=== PATIENT | female | born 1995 | race Caucasian/White ===

== ENCOUNTER 2022-10-01 17:28 | Emergency (ER) | payer OTHER, SELFPAY ==
--- NOTE | ~2022-10-01 | CT_ITS ---
EXAMINATION: CT ABDOMEN AND PELVIS WITH CONTRAST CLINICAL INFORMATION: Left-sided abdominal pain COMPARISON: None available. TECHNIQUE: Multidetector volumetric images were obtained from the superior aspect of the liver through the pubic symphysis following administration 85 mL of Omnipaque 350 intravenous contrast. Sagittal and coronal reformatted images were obtained on the technologist's workstation. Oral contrast: No This CT examination was performed using dose optimization techniques as appropriate, variously including the following: *Automated exposure control *Adjustment of mA and/or kV according to patient size (this includes techniques or standardized protocols for targeted exams where dose is matched to indication/reason for exam; i.e. extremities or head) *Use of iterative reconstruction technique DLP: 326 mGy-cm FINDINGS: LUNG BASES: The visualized lung bases are unremarkable. LIVER, GALLBLADDER, AND BILIARY TREE: The liver is normal in size, shape, and attenuation. No focal hepatic lesion or biliary ductal dilatation is present. The gallbladder is unremarkable with no evidence of radiopaque gallstones, gallbladder wall thickening, or obvious pericholecystic inflammatory changes. PANCREAS: Unremarkable. SPLEEN: Unremarkable. ADRENAL GLANDS: Unremarkable. KIDNEYS AND URETERS: The kidneys are normal in size, shape, and attenuation. No hydronephrosis, hydroureter, or calculi seen. No perinephric stranding. BLADDER: Unremarkable. GASTROINTESTINAL TRACT: There is large amount of stool in the colon without any significant distention. The small bowel loops are normal caliber. Appendix is normal caliber. There is no free air or free fluid. ABDOMINAL WALL: No significant hernia is appreciated. LYMPH NODES: Normal. VASCULAR: Unremarkable. PELVIC VISCERA: The uterus is anteverted. Ovaries are symmetrical. OSSEOUS STRUCTURES: No aggressive lytic or sclerotic process seen. CT/CT abdomen pelvis w IV con IMPRESSION: 1. No acute intra-abdominal process seen. 2. Significant constipation without obstruction. 3. No radiopaque urolith or hydroureteronephrosis. Fleischner guidelines were followed.
--- NOTE | 2022-10-01 17:45 | ED.ABDPAIN ---
HPI - Abdominal Pain General Chief Complaint: Abdominal Pain Stated Complaint: abd pain Time Seen by Provider: 10/01/22 17:33 History of Present Illness HPI narrative: Patient is a 27-year-old female presents today with having left-sided abdominal pain. The pain is been ongoing for about 2 weeks. Not associated with any fever chills. No nausea no vomiting not affected by movement. Not affected by food. No change in bowel movement. The pain has been persistent. Patient denies any vaginal bleeding. Does not think she is . Her last menstrual period was about 3 weeks ago timing and duration was normal. Denies any pain on urination. No fever no chills. Sent to the ED for further evaluation by her primary physician for question appendicitis. Related Data Previous Rx's Medication Instructions Recorded pantoprazole 40 mg tablet,delayed 40 mg PO DAILY #14 tabs 10/01/22 release (Protonix) Allergies Allergy/AdvReac Type Severity Reaction Status Date / Time No Known Allergies Allergy Unverified 02/29/20 16:35 [No Known Allergies*] Review of Systems Review of Systems Positive abdominal pain Yes all other systems are reviewed and are negative [facility] Past Medical History Attestation statement: The following information was validated with the patient. Social History Social History Advance Directives: No Advance Directives Information Provided: No Physical Exam ED Vital Signs: Vital Signs - 24 hr 10/01/22 17:56 Temperature 98.8 F Pulse Rate 88 Respiratory Rate 18 Blood Pressure 130/92 H Pulse Oximetry 97 Oxygen Delivery Method Room Air BMI result Body Mass Index 20.3 Appearance: Alert. Oriented X3. No acute distress. Eyes: Pupils equal, round and reactive to light. ENT: Pharynx normal. Neck: Normal inspection. Neck supple. No lymph nodes noted. No crepitus CVS: Normal heart rate and rhythm. Pulses normal. Normal S1 and S2 Respiratory: No respiratory distress. Breath sounds normal. No Wheezing. No rales Abdomen: Soft and nontender. No rigidity. No distention. good BS x4 Skin: Skin warm and dry. Normal skin color. Normal skin turgor. Extremities: No lower extremity edema. Neurovascular intact to all extremities. No Lacerations. No Rash Neuro: Oriented X 3. No motor deficit. No sensory deficit. Moving all extermities. No slurred speech Medical Decision Making Medical Decision Making MDM Narrative: Positive abdominal pain on the left side. Sent in by her primary physician for possible appendicitis. [place] the risk of appendicitis is low patient's urine showed no evidence of blood. Less likely it is kidney stone. CT scan of the abdomen pelvis nevertheless was done. Patient's white count was normal electrolytes normal LFTs normal less likely biliary disease. Patient's lipase is normal no evidence for pancreatitis. CT scan of the abdomen pelvis showed no obstruction no abscess no perforation. No kidney stones in the ureter. Positive constipation. Will discharge patient home. No evidence for diverticulitis. No abscess no perforation. Patient's test of course was negative no evidence of related issues. Patient's urine showed no signs of infection. Differential Diagnosis Differential Diagnoses: The differential diagnosis associated with the presentation includes UTI, gastritis, constipation, diverticulitis, appendicitis, obstruction, abscess, intussusception Admission/Observation Consideration of admission/observation: Escalation of care including admission/observation considered Lab Data MDM Lab Attestation statement: I reviewed the patient's lab results. 10/01/22 18:15 10/01/22 18:15 Labs: Lab Results 10/01/22 10/01/22 10/01/22 Range/Units 18:15 18:15 18:15 WBC 7.9 (4.8-10.8) X10*3/uL RBC 4.29 (4.20-5.50) X10*6/uL Hgb 13.8 (12.0-16.0) g/dl Hct 40.4 (37.0-47.0) % MCV 94.2 (80.0-98.0) fL MCH 32.2 (27.0-33.0) pg MCHC 34.2 (31.0-35.0) g/dl RDW 12.2 (11.0-16.0) % Plt Count 259 (160-400) X10*3/uL MPV 10.1 (9.4-12.3) fL Immature Gran % (Auto) 0.3 (0.0-0.4) % Neut % (Auto) 67.1 (45-73) % Lymph % (Auto) 25.4 (20-40) % [place] % (Auto) 5.9 (2-11) % Eos % (Auto) 0.8 (0-4) % Baso % (Auto) 0.5 (0-2) % Lymph # (Auto) 2.0 (1.2-4.9) X10*3/uL [place] # (Auto) 0.5 (0.1-1.2) X10*3/uL Eos # (Auto) 0.1 (0.0-0.4) X10*3/uL Baso # (Auto) 0.0 (0.0-0.2) X10*3/uL Abs Immat Gran (auto) 0.02 (0.00-0.03) X10*3/uL Absolute Neuts (auto) 5.3 (2.0-8.3) x10*3/uL Absolute Nucleated RBC 0.000 (0.0-0.012) X10*3/uL Nucleated RBC % (auto) 0.0 (0.0-0.2) /100WBC Sodium 140 (135-145) mmol/L Potassium 4.0 (3.3-5.1) mmol/L Chloride 102 (96-108) mmol/L Carbon Dioxide 26 (22-29) mmol/L Anion Gap 16 (12-20) BUN 12 (9-16) mg/dL Creatinine 0.82 (0.5-1.4) mg/dL Estim Creat Clear Calc 86.4 Estimated GFR > 60 Random Glucose 103 (60-115) mg/dL Calcium 10.0 (8.4-10.2) mg/dL Total Bilirubin 0.8 (0.0-1.0) mg/dL Direct Bilirubin 0.3 (0.0-0.5) mg/dL AST 30 (5-31) U/L ALT 36 H (0-31) U/L Alkaline Phosphatase 57 (39-117) U/L Total Protein 7.6 (6.5-8.0) g/dL Albumin 5.0 (3.5-5.0) g/dL Lipase 53 (8-78) U/L Urine Color Yellow Urine Appearance Clear Urine pH 6.0 (5.0-9.0) Ur Specific [place] 1.025 (1.005-1.025) Urine Protein Trace (Neg-Trace) mg/dL Urine Glucose (UA) Negative (Negative) mg/dL Urine Ketones Negative (Negative) mg/dL Urine Blood Trace (Negative) Urine Nitrite Negative (Negative) Ur Leukocyte Esterase Negative (Negative) Urine RBC 0-2 (0-2) /HPF Urine WBC 0-5 (0-5) /HPF Ur Squamous Epith Cells 0-2 (0-2) /HPF Urine Bacteria None Seen (None Seen) Hyaline Casts 0-2 (0-2) /LPF Urine Test (NEGATIVE) 10/01/22 Range/Units 18:15 WBC (4.8-10.8) X10*3/uL RBC (4.20-5.50) X10*6/uL Hgb (12.0-16.0) g/dl Hct (37.0-47.0) % MCV (80.0-98.0) fL MCH (27.0-33.0) pg MCHC (31.0-35.0) g/dl RDW (11.0-16.0) % Plt Count (160-400) X10*3/uL MPV (9.4-12.3) fL Immature Gran % (Auto) (0.0-0.4) % Neut % (Auto) (45-73) % Lymph % (Auto) (20-40) % [place] % (Auto) (2-11) % Eos % (Auto) (0-4) % Baso % (Auto) (0-2) % Lymph # (Auto) (1.2-4.9) X10*3/uL [place] # (Auto) (0.1-1.2) X10*3/uL Eos # (Auto) (0.0-0.4) X10*3/uL Baso # (Auto) (0.0-0.2) X10*3/uL Abs Immat Gran (auto) (0.00-0.03) X10*3/uL Absolute Neuts (auto) (2.0-8.3) x10*3/uL Absolute Nucleated RBC (0.0-0.012) X10*3/uL Nucleated RBC % (auto) (0.0-0.2) /100WBC Sodium (135-145) mmol/L Potassium (3.3-5.1) mmol/L Chloride (96-108) mmol/L Carbon Dioxide (22-29) mmol/L Anion Gap (12-20) BUN (9-16) mg/dL Creatinine (0.5-1.4) mg/dL Estim Creat Clear Calc Estimated GFR Random Glucose (60-115) mg/dL Calcium (8.4-10.2) mg/dL Total Bilirubin (0.0-1.0) mg/dL Direct Bilirubin (0.0-0.5) mg/dL AST (5-31) U/L ALT (0-31) U/L Alkaline Phosphatase (39-117) U/L Total Protein (6.5-8.0) g/dL Albumin (3.5-5.0) g/dL Lipase (8-78) U/L Urine Color Urine Appearance Urine pH (5.0-9.0) Ur Specific [place] (1.005-1.025) Urine Protein (Neg-Trace) mg/dL Urine Glucose (UA) (Negative) mg/dL Urine Ketones (Negative) mg/dL Urine Blood (Negative) Urine Nitrite (Negative) Ur Leukocyte Esterase (Negative) Urine RBC (0-2) /HPF Urine WBC (0-5) /HPF Ur Squamous Epith Cells (0-2) /HPF Urine Bacteria (None Seen) Hyaline Casts (0-2) /LPF Urine Test NEGATIVE (NEGATIVE) Medications Administered Discontinued Medications Generic Name Dose Route Start Last Admin Trade Name Freq PRN Reason Stop Dose Admin Sodium Chloride 1,000 mls @ 999 mls/hr 10/01/22 17:45 10/01/22 18:33 Ns IV 10/01/22 18:45 999 mls/hr .Q1H1M DANIELE Administration Iohexol 100 ml 10/01/22 18:56 10/01/22 18:56 Iohexol 350 Mg/Ml 100 Ml Infus..Btl IV 10/01/22 18:57 85 ml ONCE ONE Administration Ketorolac Tromethamine 15 mg 10/01/22 17:44 10/01/22 18:32 Ketorolac Tromethamine 15 Mg/Ml Vial IVPUSH 10/01/22 17:45 15 mg ONCE ONE Administration Discharge Plan Discharge Clinical Impression: Abdominal pain Patient Disposition: Home, Self-Care Instructions: Constipation (DC), Abdominal Pain (ED), Gastritis (DC) Prescriptions: New pantoprazole [Protonix] 40 mg tablet,delayed release (DR/EC) 40 mg PO DAILY Qty: 14 0RF Referrals: Physician,Unknown J [Primary Care Provider] - 10/05/22
[2022-10-01 17:50] VITALS: BMI 20.3
[2022-10-01 17:56] VITALS: BP 130/92; PULSE 88; RESP 18; TEMP 37.1; O2SAT 97
[2022-10-01 18:29] LABS: MANUAL DIFF FLAG NO
[2022-10-01] MEDS: Ketorolac Tromethamine 15 MG/ML VIAL IVPUSH (18:32)
[2022-10-01] MEDS: 0.9 % Sodium Chloride 1,000 ML 999 ML IV (18:33)
[2022-10-01 18:36] LABS: UPreg QC Valid YES; Urine Pregnancy NEGATIVE (NEGATIVE)
[2022-10-01 18:39] LABS: Appearance Urine Clear; Color Urine Yellow; Glucose Urine UA Negative (Negative); Leukocyte Esterase Urine Negative (Negative); Nitrite Urine Negative (Negative); Specific Gravity - Urine 1.025 (1.005-1.025); UMIC TRIGGER UACC YES; Urine Blood Trace (Negative); Urine Ketones Negative (Negative); Urine Protein Trace mg/dL (Neg-Trace)
[2022-10-01 18:40] LABS: Basophils Percent Auto 0.5 % (0-2); Eosinophils Absolute Auto 0.1 X10*3/uL (0.0-0.4); Eosinophils Percent Auto 0.8 % (0-4); Hematocrit 40.4 % (37.0-47.0); Hemoglobin 13.8 g/dl (12.0-16.0); Imm Gran Abs Auto 0.02 X10*3/uL (0.00-0.03); Imm Gran Pct Auto 0.3 % (0.0-0.4); Lymphocytes Percent Auto 25.4 % (20-40); Mean Corpuscular HGB Conc 34.2 g/dl (31.0-35.0); Mean Corpuscular Hemoglobin 32.2 pg (27.0-33.0); Mean Corpuscular Volume 94.2 fL (80.0-98.0); Mean Platelet Volume 10.1 fL (9.4-12.3); Monocytes Absolute Auto 0.5 X10*3/uL (0.1-1.2); Monocytes Percent Auto 5.9 % (2-11); Neutrophils Absolute Auto 5.3 x10*3/uL (2.0-8.3); Neutrophils Percent Auto 67.1 % (45-73); Platelet Count 259 X10*3/uL (160-400); Red Blood Count 4.29 X10*6/uL (4.20-5.50); Red Cell Distribution Width 12.2 % (11.0-16.0); White Blood Count 7.9 X10*3/uL (4.8-10.8)
[2022-10-01 18:46] LABS: Alanine Aminotransferase 36 U/L (0-31); Alkaline Phosphatase 57 U/L (39-117); Anion Gap 16 (12-20); Aspartate Amino Transferase 30 U/L (5-31); Bilirubin Direct 0.3 mg/dL (0.0-0.5); Bilirubin Total 0.8 mg/dL (0.0-1.0); Blood Urea Nitrogen 12 mg/dL (9-16); Carbon Dioxide 26 mmol/L (22-29); Chloride 102 mmol/L (96-108); Creatinine Clr Calc Pharmacy 86.4; Estimated Glomerular Filt Rate > 60; Glucose Random 103 mg/dL (60-115); Lipase 53 U/L (8-78); Sodium 140 mmol/L (135-145); Total Protein 7.6 g/dL (6.5-8.0)
[2022-10-01 18:55] LABS: Bacteria Urine None Seen (None Seen); Hyaline Casts Urine 0-2 /LPF (0-2); RBC Urine 0-2 /HPF (0-2); Squamous Epithelial Cell Urine 0-2 /HPF (0-2); WBC Urine 0-5 /HPF (0-5)
[2022-10-01] MEDS: iohexoL 350 MG/ML 100 ML INFUS..BTL IV (18:56)
== END 2022-10-01 19:54 | disposition home or self-care (01) ==
PROVIDERS: Emergency Provider Emergency Medicine Emergency Medical Services
DX: R10.9 Unspecified abdominal pain (principal)
CPT/HCPCS: 36415; 74177; 80048; 80076; 81001; 81025; 83690; 85025; 96374; 99283; 99284; J1885; Q9967

== ENCOUNTER 2022-12-24 11:54 | Outpatient (REF) | payer OTHER, SELFPAY ==
[2022-12-24 13:46] LABS: Estimated Average Glucose 94 mg/dL; Hemoglobin A1c % 4.9 %
[2022-12-24 14:24] LABS: C Reactive Protein < 0.04 mg/dL (< or = 0.50)
[2022-12-24 14:43] LABS: Erythrocyte Sedimentation Rate 2 MM/HR (0-20)
[2022-12-24 14:44] LABS: Thyroid Stimulating Hormone 0.88 uIU/mL (0.32-4.0)
[2022-12-25 05:26] LABS: HBS Num1 4.97 mIU/mL (0-7.99); HBc Num1 0.13 S/CO (0.00-0.79); HBsAGNum1 0.35 S/CO (0.00-0.99); HIV AB/AG Nonreactive (Nonreactive); Hepatitis A Antibody IgM 0.26 Index (0-0.79); Hepatitis B Core Antibody Nonreactive (Nonreactive); Hepatitis B Surface Antigen Negative (Negative); ~HepC Num1 0.15 S/CO (0.00-0.79); ~Hepatitis A Antibody IgM Nonreactive (Nonreactive); ~Hepatitis B Surface Antibody NONREACTIVE (Nonreactive); ~Hepatitis C Antibody Nonreactive (Nonreactive)
[2022-12-26 22:34] LABS: TS Negative Control Passed; TS Panel A 0; TS Panel B 0; TS Positive Control Passed; TSpotTB Negative (Negative)
[2022-12-28 22:48] LABS: Transglutaminase IgA <1.0 U/mL
[2022-12-29 16:38] LABS: Endomysial IgA Antibody Negative (Negative)
[2023-01-01 14:48] LABS: Pancreatic Elastase-1 >500 mcg/g
[2023-01-01 22:28] LABS: Calprotectin, Fecal 6 mcg/g
== END 2022-12-24 11:55 | disposition home or self-care (01) ==
LOC: HO.LAB 11:54
PROVIDERS: Visit Provider Physician Assistant
DX: Z11.4 Encounter for screening for human immunodeficiency virus [HIV] (principal); Z11.1 Encounter for screening for respiratory tuberculosis; K52.9 Noninfective gastroenteritis and colitis, unspecified; L74.9 Eccrine sweat disorder, unspecified; R63.4 Abnormal weight loss; R79.89 Other specified abnormal findings of blood chemistry; R19.8 Other specified symptoms and signs involving the digestive system and abdomen; A04.8 Other specified bacterial intestinal infections
CPT/HCPCS: 36415; 82656; 83036; 83993; 84443; 85652; 86140; 86231; 86364; 86481; 86704; 86706; 86709; 86803; 87338; 87340; 87389

== ENCOUNTER 2022-12-24 11:54 | Outpatient (AMB) | payer OTHER, SELFPAY ==
--- NOTE | 2022-12-24 11:59 | A.OFFVIS_ITS ---
Intake Vital Signs 12/24/22 12:00 Height 5 ft 3 in Weight 99 lb 3.328 oz BMI 17.6 BP 136/89 Blood Pressure Location Lt brachial Position Sitting Pulse 71 Intake Visit Reasons: abdominal pain and constipation Intake Note: Iva mortensen presents in office as a new patient for abdominal pain , constipation PT CC: pt reports having abdominal pain, constipation / diarrhea , bloating, nausea pt denies any other GI Issues General Handling Supervisor Required: No Accompanied by: Self / Same As Patient Allergies No Known Allergies [No Known Allergies*] Allergy (Unverified 12/24/22 12:01) Medication List - Last Reconciled 12/24/22 by Francheska Angel PA-C HPI HPI Comments History of Present Illness Details A 27 y/o female referred for odd LUQ burning and moves into the rest of the LQ - it cause pain-radiate to left lower quadrant-constipation, unable to go/then diarrhea She has a healthy diet- difficult to eat- nausea- daily 4-5 months-pantoprazole prescribed after ED- didnt seem to help-she has lost about 25 lb since August of this year She has had feeling of something coming from her stomach up into her throat that may have been heartburn however she is unsure rarely drinks etoh-Vapes and smokes MJ She saw PCP- sent to ED for eval for appendix- CT labs and urine- no findings She is always sweating-drenched- Washes hands- She has nausea no vomiting , no fever or chills She denies any changes in home or relationship PFSH Family History Mother Diabetes Father Diabetes Kidney cancer, primary, with metastasis from kidney to other site Social History Household Members: Family Alcohol intake: current Alcohol intake frequency: holidays/special occasions only Alcohol type: wine Patient Tobacco Use Status: Never used Tobacco e-Cigarette/Vaping Use: Currently Using Substance Use Type: Marijuana Review of Systems Const All systems reviewed & are unremarkable except as noted in HPI and below Card Denies chest pain and Denies dyspnea Resp Denies dyspnea GI Reports abdominal pain, Reports bloating, Reports heartburn, Reports loose stools, Reports nausea and Denies vomiting Physical Exam Vital Signs: Last Vital Signs Pulse 71 07/13/23 12:00 BP 136/89 12/24/22 12:00 BMI result Body Mass Index 17.6 Const General: cooperative, comfortable and no acute distress Nutritional Appearance: thin Orientation/consciousness: patient oriented x3 Limitations: no limitations Eyes Sclerae: sclerae normal Resp Effort & Inspection: normal respiratory effort and able to speak in complete sentences Auscultation: clear to auscultation bilaterally Cardio Rate: regular rate Rhythm: regular rhythm Heart sounds: S1 normal heart sound present and S2 normal heart sound present GI Inspection: Yes other (Flat) Palpation (GI): Soft to palpation and nontender Auscultation: normal bowel sounds Skin Rashes: other (Superficial slightly raise no erythema torso) Neuro General: patient oriented x3 Psych Appearance: grossly normal and well kempt Mental Status: mental status grossly normal Speech and movement: Clear speech present Affect: Anxious affect present Attitude: cooperative Thought process: Normal thought process present Thought content: Normal thought content present Results Reviewed Results Reviewed: CT/CT abdomen pelvis w IV con IMPRESSION: 1.? No acute intra-abdominal process seen. 2.? Significant constipation without obstruction. 3.? No radiopaque urolith or hydroureteronephrosis. 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 - Irritable bowel syndrome without diarrhea (2) Sweating abnormality: Comment: Difficult to assess-will check TSH, CRP Code(s): L74.9 - Eccrine sweat disorder, unspecified (3) Chronic diarrhea: Comment: In stool studies, last Code(s): K52.9 - Noninfective gastroenteritis and colitis, unspecified (4) Weight loss: Comment: Somewhat difficult to assess- her symptoms chronic, vague varying 25 lb weight loss since August 2022 Nausea, alternating stool pattern, abdominal pain, negative test Denies depression Work/home Life balance Code(s): R63.4 - Abnormal weight loss 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 Reviewed reflux precautions avoids culprits Labs today, stool studies to include fecal renetta- Orders: Orders Calprotectin, Fecal Today R19.7 - Diarrhea, unspecified C Reactive Protein Today K52.9 - Noninfective gastroenteritis and colitis, unspecified, K58.9 - Irritable bowel syndrome without diarrhea, L74.9 - Eccrine sweat disorder, unspecified Hemoglobin A1c Today K52.9 - Noninfective gastroenteritis and colitis, unspecified, L74.9 - Eccrine sweat disorder, unspecified, R63.4 - Abnormal weight loss Erythrocyte Sedimentation Rate Today R19.7 - Diarrhea, unspecified Endomysial IgA rflx Titer Today K52.9 - Noninfective gastroenteritis and colitis, unspecified, L74.9 - Eccrine sweat disorder, unspecified, R63.4 - Abnormal weight loss HIV Ab/Ag Today K52.9 - Noninfective gastroenteritis and colitis, unspecified, R63.4 - Abnormal weight loss T Spot TB Today K58.9 - Irritable bowel syndrome without diarrhea, L74.9 - Eccrine sweat disorder, unspecified Pancreatic Elastase-1 Today K52.9 - Noninfective gastroenteritis and colitis, unspecified, L74.9 - Eccrine sweat disorder, unspecified, R63.4 - Abnormal weight loss Thyroid Stimulating Hormone Today R19.8 - Other specified symptoms and signs involving the digestive system and abdomen Transglutaminase IgA Today R19.7 - Diarrhea, unspecified Hepatitis A,B,C Profile Today R79.89 - Other specified abnormal findings of bloo d chemistry H pylori Ag Stool Today A04.8 - Other specified bacterial intestinal infections Fecal Fat Qualitative Today K52.9 - Noninfective gastroenteritis and colitis, unspecified, L74.9 - Eccrine sweat disorder, unspecified, R63.4 - Abnormal weight loss Giardia Ag Stool EIA Today R19.7 - Diarrhea, unspecified Gliadin Ab Panel Today K52.9 - Noninfective gastroenteritis and colitis, unspecified, L74.9 - Eccrine sweat disorder, unspecified, R63.4 - Abnormal weight loss Medications: New methylcellulose (laxative) (Citrucel) 500 mg PO TID 90 tabs 5RF sucralfate 1 g PO QIDACHS 30 days 90 tabs 1RF Patient Instructions: Very pleasant 27-year-old soft-spoken female presents with weight loss, alternating stool pattern, abdominal pain, chronic nausea flashes Labs today Begin Carafate q.i.d.- H pylori if positive will test Encouraged to call questions or concerns Appreciate the opportunity assist in the care the patient Coding Level of Care Code New Pt Level 4 (45467) Diagnoses IBS (irritable bowel syndrome) K58.9 Sweating abnormality L74.9 Chronic diarrhea K52.9 Weight loss R63.4 Time Spent (min) 45
[2022-12-24 12:00] VITALS: BP 136/89; PULSE 71; BMI 17.6
== END 2022-12-24 12:45 | disposition home or self-care (01) ==
PROVIDERS: Visit Provider Physician Assistant
DX: K58.0 Irritable bowel syndrome with diarrhea (principal); L74.9 Eccrine sweat disorder, unspecified; R63.4 Abnormal weight loss
CPT/HCPCS: 99204; 99214

== ENCOUNTER 2023-02-01 13:28 | Outpatient (AMB) | payer OTHER, SELFPAY ==
--- NOTE | 2023-02-01 13:37 | A.OFFVIS_ITS ---
Intake Vital Signs 02/01/23 13:41 Height 5 ft 3 in Weight 100 lb BMI 17.7 BP 127/59 L Blood Pressure Location Lt brachial Position Sitting Pulse 96 Intake Visit Reasons: follow up Intake Note: Patient follow up Chronic diarrhea, lab and fecal results. Patient cc: abdominal pain with bloating, acid reflex, and between diarrhea and constipation. Used Equipment Sales Representative Required: No Accompanied by: Self / Same As Patient Allergies No Known Allergies [No Known Allergies*] Allergy (Verified 02/01/23 13:36) HPI HPI Comments History of Present Illness Details 27-year-old female acid reflux, alternating stool pattern, abdominal bloating, -chronic vague GI complaints follows up after blood work and stool studies. She says she is not better- acid is way worse-comes up in my mouth - bloating alternating stool pattern-appetite is not great, still losing weight-gets abdominal cramps left at quadrant seems to wander TSH, celiac markers, sed rate, crp ,stool calprotectin, all within normal range No fever, chills, hematemesis hematochezia PFSH Family History Mother Diabetes Father Diabetes Kidney cancer, primary, with metastasis from kidney to other site Social History Household Members: Family Alcohol intake: current Alcohol intake frequency: holidays/special occasions only Alcohol type: wine Patient Tobacco Use Status: Never used Tobacco e-Cigarette/Vaping Use: Currently Using Substance Use Type: Marijuana Review of Systems Const All systems reviewed & are unremarkable except as noted in HPI and below Denies chills, Reports excessive sweating, Denies fever(s), Denies headache(s) and Reports weight loss ENT Denies headache(s) Card Denies chest pain and Denies dyspnea Resp Denies dyspnea GI Reports abdominal pain, Denies hematochezia, Reports constipation, Reports heartburn and Reports diarrhea Neuro Denies headache(s) Psych Reports anxiety Endo Reports excessive sweating Physical Exam Vital Signs: Last Vital Signs Pulse 96 02/01/23 13:41 BP 127/59 L 02/01/23 13:41 BMI result Body Mass Index 17.7 Const General: cooperative and anxious Nutritional Appearance: underweight Limitations: no limitations Eyes Sclerae: sclerae normal Resp Effort & Inspection: normal respiratory effort and able to speak in complete sentences Skin General skin exam: no rashes or lesions noted Extrem General: Yes full ROM Psych Appearance: well kempt Mental Status: mental status grossly normal Speech and movement: Pressured speech present Affect: Animated affect present and Anxious affect present Attitude: cooperative Thought process: Normal thought process present Thought content: Normal thought content present Insight: Good insight present (Psych) Judgement: Good judgement present (Psych) Results Reviewed Results Reviewed: CT/CT abdomen pelvis w IV con IMPRESSION: 1.? No acute intra-abdominal process seen. 2.? Significant constipation without obstruction. 3.? No radiopaque urolith or hydroureteronephrosis. ? 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 (3) Weight loss: Comment: Somewhat difficult to assess- her symptoms chronic, vague varying 25 lb weight loss since August 2022 Nausea, alternating stool pattern, abdominal pain, negative test Denies depression Work/home Life balance Code(s): R63.4 - Abnormal weight loss Plan: Continue workup (4) Chronic diarrhea: Comment: Stool studies no find Code(s): K52.9 - Noninfective gastroenteritis and colitis, unspecified (5) Sweating abnormality: Comment: Difficult to assess- Code(s): L74.9 - Eccrine sweat disorder, unspecified Plan EGD colonoscopy-Dr. PEREIRA- Pantoprazole q.a.m. Famotidine q.h.s. Doxycycline 10 mg up to t.i.d. Orders: Orders EGD/[place] Combo - GI Use Only Today K21.9 - Gastro-esophageal reflux disease without esophagitis, K52.9 - Noninfective gastroenteritis and colitis, unspecified, L74.9 - Eccrine sweat disorder, unspecified, R63.4 - Abnormal weight loss Medications: New bisacodyl (Dulcolax (bisacodyl)) Take 4 tablets by mouth at 12:00pm the day before your procedure. 20 mg (4 x 5 mg) PO ONCE 1 day 4 tabs 0RF colonoscopy prep Z12.11 - Encounter for screening for malignant neoplasm of colon polyethylene glycol 3350 (Miralax) Take as directed by mouth the day before your procedure. 238 grams PO ONCE 1 day PRN 238 grams 0RF laxative effect pantoprazole 20 mg PO QAM 30 tabs 6RF famotidine 20 mg PO DAILY 30 tabs 3RF dicyclomine 10 mg PO TID 90 caps 0RF Patient Instructions: Very pleasant 27-year-old female multiple GI complaints somewhat difficult to assess Will schedule for EGD colonoscopy- Pantoprazole q.a.m. Famotidine q.h.s. Reflux precautions Doxycycline 10 mg up to t.i.d. Encouraged to call with questions or concerns Appreciate the opportunity assist in the care the patient Coding Level of Care Code Est Pt Level 4 (13092) Diagnoses IBS (irritable bowel syndrome) K58.9 Acid reflux K21.9 Weight loss R63.4 Chronic diarrhea K52.9 Sweating abnormality L74.9 Time Spent (min) 30
[2023-02-01 13:41] VITALS: BP 127/59; PULSE 96; BMI 17.7
== END 2023-02-01 15:18 | disposition home or self-care (01) ==
PROVIDERS: Visit Provider Physician Assistant
DX: K58.9 Irritable bowel syndrome, unspecified (principal); K21.9 Gastro-esophageal reflux disease without esophagitis; R63.4 Abnormal weight loss; L74.9 Eccrine sweat disorder, unspecified
CPT/HCPCS: 99214

== ENCOUNTER → 2023-02-01 13:28 | Outpatient (BNVA) | payer OTHER, SELFPAY | PROVIDERS: Visit Provider Physician Assistant ==

== ENCOUNTER 2023-03-01 09:56 | Outpatient (REF) | payer OTHER, SELFPAY ==
--- NOTE | ~2023-03-01 | US_ITS ---
EXAMINATION: Ultrasound abdominal arterial Doppler CLINICAL INFORMATION: Abnormal weight loss. Rule out celiac axis and SMA syndrome. COMPARISON: CT abdomen 10/01/2022. TECHNIQUE: Doppler abdominal ultrasound was done to evaluate the visceral arteries for celiac artery compression syndrome. Grayscale, color Doppler, and spectral Doppler evaluation was performed with provocative maneuvers. FINDINGS: ABDOMINAL AORTA: Proximal to SMA: PSV 231 cm/s. Normal waveform. Distal to SMA: PSV 153 cm/s. Normal waveform. CELIAC ARTERY: Supine inspiration: PSV 210 cm/s. Normal waveform. Supine expiration: PSV 246 cm/s. Normal waveform. Erect inspiration: PSV 160 cm/s. Normal waveform. Erect expiration: PSV 267 cm/s. Normal waveform. There is no significant change in celiac angle in inspiration versus expiration. On CT, the celiac trunk appears normal with no evidence of compression by the median arcuate ligament. SUPERIOR MESENTERIC ARTERY: Proximal: PSV 184 cm/s. Normal waveform. Mid: PSV 144 cm/s. Normal waveform. Distal: PSV 71 cm/s. Normal waveform. The aortomesenteric angle is 10.[address], the aortomesenteric angle was approximately 14 degrees and the aortomesenteric distance approximately 7 mm. JO: PSV 102 cm/s. Normal waveform. SPLENIC ARTERY: PSV 97 cm/s. Normal waveform. HEPATIC ARTERY: PSV 58 cm/s. Normal waveform. US/US SMA IMPRESSION: No Doppler evidence of median arcuate ligament compression of the celiac trunk. 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 Recommend upper GI series to evaluate for duodenal compression by the superior mesenteric artery.
== END 2023-03-01 09:57 | disposition home or self-care (01) ==
LOC: HO.US 09:56
PROVIDERS: Visit Provider Physician Assistant
DX: R63.4 Abnormal weight loss (principal); R10.9 Unspecified abdominal pain
CPT/HCPCS: 93976

== ENCOUNTER 2023-05-21 09:25 | Outpatient (REF) | payer OTHER, SELFPAY ==
--- NOTE | ~2023-05-21 | FL_ITS ---
EXAMINATION: XR FLUOROSCOPY UPPER GI WITH AIR CLINICAL INFORMATION: Abdominal pain. Weight loss. 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 Numerous spot images were obtained. FINDINGS: Dual and single contrast images of the esophagus demonstrate normal caliber, contour, and mucosal pattern. No evidence of stricture, mass, or ulcerations identified. Esophageal peristalsis was normal. No evidence of hiatus hernia identified. Gastroesophageal reflux is seen up to the thoracic inlet. Dual contrast and single contrast images of the stomach demonstrated normal contour without evidence of mass ulceration, or other abnormality. The gastric mucosal folds appear thickened likely representing gastritis. Contrast freely passed into the gastric antrum and duodenal bulb without delay. Single and air-contrast images of the duodenal bulb demonstrate no abnormality. The duodenal sweep has a normal appearance, course, and mucosal fold appearance. There is no obstruction. The imaged proximal jejunum has a normal fold pattern and caliber. FLUOROSCOPY TIME: 4 minutes 1 second Number of Spot Images: 13 Number of Cine: 10 DOSE AREA PRODUCT: 108.4 uGy-m2 (microgray-meter squared) FL/FL upper GI series IMPRESSION: 1. Mild gastroesophageal reflux 2. Thickened gastric mucosa likely representing gastritis 3. No definitive evidence of SMA syndrome This procedure was performed by Milind Su PA-C, and supervised by Dr. Fragoso
== END 2023-05-21 09:26 | disposition home or self-care (01) ==
LOC: HO.XRAY 09:25
PROVIDERS: Visit Provider Physician Assistant
DX: R63.4 Abnormal weight loss (principal); K21.9 Gastro-esophageal reflux disease without esophagitis; L74.9 Eccrine sweat disorder, unspecified
CPT/HCPCS: 74240

== ENCOUNTER → 2023-05-21 09:27 | Outpatient (BNV) | payer OTHER, SELFPAY | PROVIDERS: Visit Provider Radiology Diagnostic Radiology | DX: K21.9 Gastro-esophageal reflux disease without esophagitis (principal) | CPT/HCPCS: 74246 ==

== ENCOUNTER 2024-09-29 18:30 | Emergency (ER) | payer OTHER, SELFPAY ==
--- NOTE | 2024-09-29 18:59 | ED.GENADULT ---
HPI - General Adult General Chief complaint: General Medical Stated complaint: Dizzy, sweats, elevated HR Time Seen by Provider: 09/29/24 22:07 History of Present Illness ED Provider: Vince Ford MD HPI narrative: This is a 29-year-old otherwise healthy female who reports multiple recurrent episodes over the past 5 days of lightheadedness and dizziness occasionally feels like she is going to pass out but she has not lost consciousness. She reports elevated heart rates on her smart watch. Previously several years ago she had an evaluation by a tube coater for ?arrhythmia? she is not sure what this was but she was never put on medications or advised to begin any therapy. She has otherwise been in her normal state of health no fever no recent travel no edema to the legs or history of DVT PE she takes no medications Related Data Previous Rx's ?Medication ?Instructions ?Recorded bisacodyl 5 mg tablet,delayed 20 mg (4 x 5 mg) PO ONCE 02/01/23 release (Dulcolax (bisacodyl)) colonoscopy prep 1 day #4 tabs pantoprazole 20 mg tablet,delayed 20 mg PO QAM #30 tabs 02/01/23 release polyethylene glycol 3350 17 238 g PO ONCE PRN laxative effect 02/01/23 gram/dose oral powder (Miralax) 1 day #238 grams dicyclomine 10 mg capsule 10 mg PO TID #90 caps 03/01/23 sucralfate 100 mg/mL oral 1 g (10 mL) PO QIDACHS 4 weeks 06/23/23 suspension (Carafate) #420 mL Allergies Allergy/AdvReac Type Severity Reaction Status Date / Time No Known Allergies Allergy Verified 09/29/24 19:04 [No Known Allergies*] [facility] Family History Family History Mother Diabetes Father Diabetes Kidney cancer, primary, with metastasis from kidney to other site Social History Social History Household Members: Family Alcohol intake: current Alcohol intake frequency: holidays/special occasions only Alcohol type: wine Patient Tobacco Use Status: Never used Tobacco e-Cigarette/Vaping Use: Currently Using Substance Use Type: Marijuana Advance Directives: No Advance Directives Information Provided: Yes Physical Exam ED Vital Signs: Vital Signs - 24 hr 09/29/24 19:01 09/29/24 22:06 09/29/24 23:13 Temperature 98.8 F 98.6 F Pulse Rate 97 65 62 Respiratory Rate 18 18 Blood Pressure 146/93 H 120/80 136/82 Pulse Oximetry 98 99 Oxygen Delivery Method Room Air Room Air 09/29/24 23:13 09/29/24 23:14 Temperature Pulse Rate 71 79 Respiratory Rate Blood Pressure 131/82 145/76 H Pulse Oximetry Oxygen Delivery Method BMI result Body Mass Index 17.8 Const Other: EXAM: Gen: Alert, awake, well appearing, well hydrated. Head: Atraumatic Eyes: Anicteric, Normal conjunctiva. ENT: Moist mucosa, no pallor. ? Neck: Supple. Respiratory: Breathing comfortably, No distress.Clear to auscultation bilaterally, symmetric chest expansion, No wheeze, rales, ronchi. Cardiovascular: Regular rate and rhythm. No murmurs or rub. Well perfused periphery, warm extremities. No edema. ? Abdominal: Soft, no objective distension. No palpable masses or obvious organomegaly. No focal tenderness, no guarding, no rebound tenderness or other peritoneal findings. : No flank tenderness. Neuro: Alert. Gross movement of all extremities intact. ? Vital signs: See flowsheet Course Course Course Narrative: This is a Rapid Medical Examination (RME) performed by Fbaien Cabrera PA-C in triage. Full HPI, ROS, assessment and treatment plan per primary provider in the Main ED. 09/29/241858 [facility] Hx: 29 yo female here for eval of intermittent dizziness x5 days. reports excessive sweating, feels almost presyncopal. denies any episodes of syncope. assoc nausea w/o vomiting. not on any meds. occasional marijuana use. no other illicit substances. Reports history of similar when she was started on an anxiety medication. Has been monitoring her heart rate via watch. Heart rate ranges between 80 and 140 beats per minute. PE/vitals: well appearing Plan: Labs, EKG, UA/urine Medical Decision Making Medical Decision Making MDM Narrative: 29-year-old female with spells of dizziness nausea diaphoresis and perhaps rapid heart rate and near syncope. She is thin but appears euvolemic and well hydrated well nourished. She is not orthostatic though she does clinically become symptomatic upon standing rapidly. She may be dehydrated her lab work is all very reassuring including thyroid and electrolytes. I have strongly recommended aggressive oral hydration and regular small meals throughout the day. She has no headache or focal neurologic deficits on examination. In the ED she drank several cups of water and we monitored briefly. She had a reassuring ECG and we have discharged her home. I have noted to her and discussed with her that she has protein in her urine this may need to be followed up by PCP/Nephrology but her creatinine is normal and electrolytes are normal at this time Lab Data MDM Lab Attestation statement: I reviewed the patient's lab results. 09/29/24 19:24 09/29/24 19:24 Labs: Lab Results 09/29/24 09/29/24 Range/Units 19:24 19:30 WBC 7.9 (4.8-10.8) X10*3/uL RBC 4.39 (4.20-5.50) X10*6/uL Hgb 14.1 (12.0-16.0) g/dl Hct 40.9 (37.0-47.0) % MCV 93.2 (80.0-98.0) fL MCH 32.1 (27.0-33.0) pg MCHC 34.5 (31.0-35.0) g/dl RDW 12.2 (11.0-16.0) % Plt Count 294 (160-400) X10*3/uL MPV 9.8 (9.4-12.3) fL Immature Gran % (Auto) 0.4 (0.0-0.4) % Neut % (Auto) 74.5 H (45-73) % Lymph % (Auto) 17.7 L (20-40) % [place] % (Auto) 6.3 (2-11) % Eos % (Auto) 0.5 (0-4) % Baso % (Auto) 0.6 (0-2) % Lymph # (Auto) 1.4 (1.2-4.9) X10*3/uL [place] # (Auto) 0.5 (0.1-1.2) X10*3/uL Eos # (Auto) 0.0 (0.0-0.4) X10*3/uL Baso # (Auto) 0.1 (0.0-0.2) X10*3/uL Abs Immat Gran (auto) 0.03 (0.00-0.03) X10*3/uL Absolute Neuts (auto) 5.9 (2.0-8.3) x10*3/uL Absolute Nucleated RBC 0.000 (0.0-0.012) X10*3/uL Nucleated RBC % (auto) 0.0 (0.0-0.2) /100WBC Sodium 140 (135-145) mmol/L Potassium 3.9 (3.3-5.1) mmol/L Chloride 105 (96-108) mmol/L Carbon Dioxide 25 (22-29) mmol/L Anion Gap 14 (12-20) BUN 10 (9-16) mg/dL Creatinine 0.78 (0.5-1.4) mg/dL Estim Creat Clear Calc 77.9 Estimated GFR > 60 Random Glucose 99 (60-115) mg/dL Calcium 9.7 (8.4-10.2) mg/dL Magnesium 1.9 (1.6-2.6) mg/dL Total Bilirubin 0.8 (0.0-1.0) mg/dL AST 24 (5-31) U/L ALT 19 (0-31) U/L Alkaline Phosphatase 50 (39-117) U/L Troponin I High Sens < 2.7 (<3.5-17.0) ng/L Total Protein 7.9 (6.5-8.0) g/dL Albumin 4.9 (3.5-5.0) g/dL TSH 2.26 (0.32-4.0) uIU/mL Urine Color Yellow Urine Appearance Clear Urine pH 7.0 (5.0-9.0) Ur Specific [place] 1.010 (1.005-1.025) Urine Protein 30 (1+) H (Neg-Trace) mg/dL Urine Glucose (UA) Negative (Negative) mg/dL Urine Ketones Negative (Negative) mg/dL Urine Blood Negative (Negative) Urine Nitrite Negative (Negative) Ur Leukocyte Esterase Negative (Negative) Urine RBC 3-5 H (0-2) /HPF Urine WBC 0-5 (0-5) /HPF Ur Squamous Epith Cells 0-2 (0-2) /HPF Urine Bacteria None Seen (None Seen) Hyaline Casts 0-2 (0-2) /LPF Urine Test NEGATIVE (NEGATIVE) Influenza Type A (PCR) NEGATIVE (Negative) Influenza Type B (PCR) NEGATIVE (Negative) RSV RNA Qual (PCR) NEGATIVE (Negative) SARS-CoV-2 RNA (RT-PCR) NEGATIVE (Negative) Independent Interpretation I performed an independent interpretation of an: EKG Interpretation: ECG is normal sinus rhythm rate 81 QTC 392. No acute ischemic changes. Normal intervals normal axis. No RV strain. Discharge Plan Discharge Clinical Impression: Acute dehydration Patient Disposition: Home, Self-Care Instructions: Dehydration (ED) Additional Instructions: DISCHARGE DIAGNOSES: Possibly dehydrated Possibly orthostatic meaning that when you stand blood pressure 2 brain slightly drops making you feel dizzy Protein in the urine this needs to be followed up with your primary doctor Possible rapid arrhythmia that was not detected in the emergency department HISTORY OF PRESENTATION: Multiple episodes throughout the week of feeling dizzy lightheaded sweaty fast heart rate EMERGENCY DEPARTMENT COURSE,TESTS, TREATMENTS: While in the ED today we evaluated you with an EKG, lab work including all of your electrolytes kidney function thyroid panel normal your blood counts were all normal DISCHARGE MEDICATIONS: ?[We have made no changes to your regular medication regimen] FOLLOW-UP: ?Call your primary or general physician soon as possible to discuss your symptoms, your ED visit and to discuss follow up plans Call your primary doctor to discuss the findings above. Drink plenty of fluid daily and eat small meals. Get up very slowly INSTRUCTIONS ?& RETURN PRECAUTIONS: If any symptoms change first call your primary physician, if it is after-hours your primary doctors office should have a provider police communications operator you can speak with. If the symptoms are severe or very concerning to you then call 911 or return to the ED. [[id number]] Vince Ford MD Emergency Physician [facility] Prescriptions: No Action dicyclomine 10 mg capsule 10 mg PO TID Qty: 90 0RF sucralfate [Carafate] 100 mg/mL suspension 1 g PO QIDACHS 28 Days Qty: 420 1RF bisacodyl [Dulcolax (bisacodyl)] 5 mg tablet,delayed release (DR/EC) 20 mg PO ONCE 1 Days Qty: 4 0RF Rx Instructions: Take 4 tablets by mouth at 12:00pm the day before your procedure. polyethylene glycol 3350 [Miralax] 17 gram/dose powder 238 g PO ONCE PRN (Reason: laxative effect) 1 Days Qty: 238 0RF Rx Instructions: Take as directed by mouth the day before your procedure. pantoprazole 20 mg tablet,delayed release (DR/EC) 20 mg PO QAM Qty: 30 6RF Print Language: [place]
[2024-09-29 19:01] VITALS: BP 146/93; PULSE 97; RESP 18; TEMP 37.1; O2SAT 98; BMI 17.8
--- NOTE | 2024-09-29 19:01 | ECG_ITS ---
Test Reason : DIZZINESS Blood Pressure : */* mmHG Vent. Rate : 81 BPM Atrial Rate : 81 BPM P-R Int : 136 ms QRS Dur : 78 ms QT Int : 338 ms P-R-T Axes : 74 47 67 degrees QTcB Int : 392 ms Normal sinus rhythm with sinus arrhythmia Normal ECG No previous ECGs available Referred By: Linda Cabrera Electronically Signed By: DWIGHT STARK MD
[2024-09-29 19:29] LABS: MANUAL DIFF FLAG NO
[2024-09-29 19:31] LABS: Basophils Absolute Auto 0.1 X10*3/uL (0.0-0.2); Basophils Percent Auto 0.6 % (0-2); Eosinophils Percent Auto 0.5 % (0-4); Hematocrit 40.9 % (37.0-47.0); Hemoglobin 14.1 g/dl (12.0-16.0); Imm Gran Abs Auto 0.03 X10*3/uL (0.00-0.03); Imm Gran Pct Auto 0.4 % (0.0-0.4); Lymphocytes Absolute Auto 1.4 X10*3/uL (1.2-4.9); Lymphocytes Percent Auto 17.7 % (20-40); Mean Corpuscular HGB Conc 34.5 g/dl (31.0-35.0); Mean Corpuscular Hemoglobin 32.1 pg (27.0-33.0); Mean Corpuscular Volume 93.2 fL (80.0-98.0); Mean Platelet Volume 9.8 fL (9.4-12.3); Monocytes Absolute Auto 0.5 X10*3/uL (0.1-1.2); Monocytes Percent Auto 6.3 % (2-11); Neutrophils Absolute Auto 5.9 x10*3/uL (2.0-8.3); Neutrophils Percent Auto 74.5 % (45-73); Platelet Count 294 X10*3/uL (160-400); Red Blood Count 4.39 X10*6/uL (4.20-5.50); Red Cell Distribution Width 12.2 % (11.0-16.0); White Blood Count 7.9 X10*3/uL (4.8-10.8)
[2024-09-29 19:49] LABS: Alanine Aminotransferase 19 U/L (0-31); Albumin Level 4.9 g/dL (3.5-5.0); Alkaline Phosphatase 50 U/L (39-117); Aspartate Amino Transferase 24 U/L (5-31); Bilirubin Total 0.8 mg/dL (0.0-1.0); Blood Urea Nitrogen 10 mg/dL (9-16); Calcium 9.7 mg/dL (8.4-10.2); Creatinine Clr Calc Pharmacy 77.9; Estimated Glomerular Filt Rate > 60; Glucose Random 99 mg/dL (60-115); Magnesium 1.9 mg/dL (1.6-2.6); Total Protein 7.9 g/dL (6.5-8.0)
[2024-09-29 19:53] LABS: Troponin-I High Sensitivity < 2.7 ng/L (<3.5-17.0)
[2024-09-29 19:58] LABS: Appearance Urine Clear; Color Urine Yellow; Glucose Urine UA Negative (Negative); Leukocyte Esterase Urine Negative (Negative); Nitrite Urine Negative (Negative); UMIC TRIGGER UACC YES; Urine Blood Negative (Negative); Urine Ketones Negative (Negative); Urine Protein 30 (1+) mg/dL (Neg-Trace)
[2024-09-29 20:01] LABS: UPreg QC Valid YES; Urine Pregnancy NEGATIVE (NEGATIVE)
[2024-09-29 20:07] LABS: Anion Gap 14 (12-20); Carbon Dioxide 25 mmol/L (22-29); Chloride 105 mmol/L (96-108); Potassium 3.9 mmol/L (3.3-5.1); Sodium 140 mmol/L (135-145); TSH reflex Free T4 2.26 uIU/mL (0.32-4.0)
[2024-09-29 20:08] LABS: Influenza A PCR NEGATIVE (Negative); Influenza B PCR NEGATIVE (Negative); Resp Syncy Virus RNA Qual PCR NEGATIVE (Negative); SARS COV2 PCR INHOUSE NEGATIVE (Negative)
[2024-09-29 20:12] LABS: Bacteria Urine None Seen (None Seen); Hyaline Casts Urine 0-2 /LPF (0-2); Squamous Epithelial Cell Urine 0-2 /HPF (0-2); WBC Urine 0-5 /HPF (0-5)
[2024-09-29 22:06] VITALS: BP 120/80; PULSE 65; RESP 18; TEMP 37; O2SAT 99
[2024-09-29 23:13] VITALS: BP 131/82; BP 136/82; PULSE 62; PULSE 71
[2024-09-29 23:14] VITALS: BP 145/76; PULSE 79
[2024-09-29 23:55] VITALS: BP 145/76; PULSE 79; RESP 17; TEMP 37.1; O2SAT 100
== END 2024-09-29 23:55 | disposition home or self-care (01) ==
PROVIDERS: Physician Assistant Medical; Emergency Provider Emergency Medicine
DX: R42 Dizziness and giddiness (principal); I49.8 Other specified cardiac arrhythmias; E86.0 Dehydration; Z03.818 Encounter for observation for suspected exposure to other biological agents ruled out; Z79.899 Other long term (current) drug therapy
CPT/HCPCS: 0241U; 80053; 81001; 81003; 81025; 83735; 84443; 84484; 85025; 93005; 99283; 99284

== ENCOUNTER → 2024-09-29 19:01 | Outpatient (BNV) | payer OTHER, SELFPAY | PROVIDERS: Emergency Provider Emergency Medicine; Visit Provider Internal Medicine Cardiovascular Disease | DX: R42 Dizziness and giddiness (principal) | CPT/HCPCS: 93010 ==

== ENCOUNTER 2024-10-02 15:10 | Emergency (ER) | payer OTHER, SELFPAY ==
--- NOTE | ~2024-10-02 | CT_ITS ---
CLINICAL HISTORY: intractable dizziness CT head without contrast Comparison: None Findings: No intra-axial mass, midline shift, hydrocephalus, or acute hemorrhage. No significant atrophy-like change or white matter disease. There is no sinus or mastoid fluid. The orbits are unremarkable. There is no acute fracture. IMPRESSION: 1. No acute intracranial findings. This document has been electronically signed by: Brian Howe MD on 10/02/2024 23:39:06
--- NOTE | 2024-10-02 15:29 | ED.GENADULT ---
HPI - General Adult General Chief complaint: Dizziness Stated complaint: dizziness seen here 09/29 Time Seen by Provider: 10/02/24 17:57 Source: patient History of Present Illness ED Provider: cale weber np HPI narrative: Patient is a 29-year-old female with past medical history of IBS who presents emergency department for evaluation of intermittent dizziness and lightheadedness over the past week. Predominantly described as a room spinning sensation, and she does find it to be noticeably worse with position change, as well as head movement. At times she experiences ringing in her ears as well. She states that occasionally she feels as though she is going to pass out but has not lost consciousness. She has been monitoring her heart rate with smart watch, occasionally she notes an elevated heart rate though not always. She states that she has been seen by Cardiology in the past due to a ?arrhythmia? but can not provide much further details in regards to this. She is not on medication for this. She denies any chest pain, shortness of breath, difficulty breathing, history of VTE/malignancy, lower extremity redness pain or swelling, use of OCP. She does admit that she was evaluated in the emergency department 3 days ago 09/29/2024, was advised that she was perhaps dehydrated, she states that she has been drinking to 64 oz bottles of water daily since then but has not noticed any improvement additionally has not noticed any worsening or new symptoms. Related Data Previous Rx's ?Medication ?Instructions ?Recorded bisacodyl 5 mg tablet,delayed 20 mg (4 x 5 mg) PO ONCE 02/01/23 release (Dulcolax (bisacodyl)) colonoscopy prep 1 day #4 tabs pantoprazole 20 mg tablet,delayed 20 mg PO QAM #30 tabs 02/01/23 release polyethylene glycol 3350 17 238 g PO ONCE PRN laxative effect 02/01/23 gram/dose oral powder (Miralax) 1 day #238 grams dicyclomine 10 mg capsule 10 mg PO TID #90 caps 03/01/23 sucralfate 100 mg/mL oral 1 g (10 mL) PO QIDACHS 4 weeks 06/23/23 suspension (Carafate) #420 mL Allergies Allergy/AdvReac Type Severity Reaction Status Date / Time No Known Allergies Allergy Verified 10/02/24 15:33 [No Known Allergies*] Review of Systems Review of Systems: Yes all other systems are reviewed and are negative [facility] Past Medical History Attestation statement: The following information was validated with the patient. Source: old records reviewed Family History Family History Mother Diabetes Father Diabetes Kidney cancer, primary, with metastasis from kidney to other site Social History Social History Household Members: Family Alcohol intake: current Alcohol intake frequency: holidays/special occasions only Alcohol type: wine Patient Tobacco Use Status: Never used Tobacco e-Cigarette/Vaping Use: Currently Using Substance Use Type: Marijuana Advance Directives: No Advance Directives Information Provided: No Physical Exam ED Vital Signs: Vital Signs - 24 hr 10/02/24 15:30 10/02/24 17:52 10/02/24 18:25 Temperature 97.9 F 97.5 F Pulse Rate 80 57 55 Respiratory Rate 16 16 Blood Pressure 128/91 H 119/72 118/67 Pulse Oximetry 99 99 Oxygen Delivery Method Room Air Room Air 10/02/24 18:25 10/02/24 18:25 10/02/24 19:48 Temperature 98.4 F Pulse Rate 66 82 64 Respiratory Rate 16 Blood Pressure 123/74 131/85 127/80 Pulse Oximetry 99 Oxygen Delivery Method Room Air 10/02/24 21:55 Temperature 98.3 F Pulse Rate 66 Respiratory Rate 16 Blood Pressure 120/79 Pulse Oximetry 98 Oxygen Delivery Method Room Air BMI result Body Mass Index 18.0 Appearance: Alert.?Oriented to person, place and time. No acute distress.?Normal affect. Head: Normocephalic, atraumatic. No head, sinus or TMJ tenderness.? Eyes: Sclera white, conjunctiva pink. PERRL, 3 mm bilaterally. Visual crowley full to confrontation, EOMi.?No Nystagmus. Ears: Bilateral ear canals clear, TM visible with good cone of light.? Nose: Nasal mucosa pink and moist with midline septum, nares patent bilaterally.? Mouth/ Throat: Oral mucosa pink and moist without lesions. Pharynx normal Neck: Normal inspection.? Neck supple.?? CVS: Heart sounds normal. Normal heart rate and rhythm.? Pulses normal.?? Respiratory: No respiratory distress.? Lung sounds clear to auscultation bilaterally?? Abdomen: Soft and non-tender. Normoactive bowel sounds. No pulsatile mass.?? Skin: Skin warm and dry.? Normal skin color.? Normal skin turgor.?? Extremities: No lower extremity edema. Neuro: No focal neurological deficit observed, CN II-XII intact, normal sensory observed, normal coordination observed. Level of consciousness: Appropriate for age. Motor strength: right upper extremity 5 /5, left upper extremity 5 /5, right lower extremity 5 /5, left lower extremity 5 /5.?Speech: Normal, Gait: Normal, Jrdxpy-kn-[id number] test: Normal, Xfbc-tf-[id number] test: Normal. Ambulates with normal steady gait. Course Course Course Narrative: This is a rapid medical exam performed by Floridalma Oro NP: Additional HPI, ROS, PE not included below will be deferred to primary provider. Patient is a 29-year-old female with history of IBS presenting to the ED with complaint of dizziness and head pressure. Mild abdominal pain. Plan; EKG, labs, viral panel Reevaluation(s) Reevaluation #1: Symptoms entirely unchanged after meclizine. Reviewed with my attending Dr. Waddell, advises despite no focal neurological deficits to obtain head CT for intractable dizziness which revealed no acute pathology. She received lorazepam orally which she states has made her symptoms no different. It remains intermittent. She is eating and drinking ambulatory with a steady gait. Remains without focal neurological deficits. Advising outpatient follow-up with your primary care doctor, they may consider a course of vestibular therapy. Reviewed strict return precautions. All questions answered. Medications Administered Discontinued Medications Generic Name Dose Route Start Last Admin Trade Name Ricardoq PRN Reason Stop Dose Admin Lorazepam 0.5 mg 10/02/24 21:37 10/02/24 21:50 Lorazepam 0.5 Mg Tablet PO 10/02/24 21:38 0.5 mg ONCE ONE Administration Meclizine HCl 25 mg 10/02/24 18:16 10/02/24 18:51 Meclizine Hcl 25 Mg Tablet PO 10/02/24 18:17 25 mg ONCE ONE Administration Ondansetron HCl 4 mg 10/02/24 21:37 10/02/24 21:50 Ondansetron Odt 4 Mg Tab.Rapdis TRANSLINGU 10/02/24 21:38 4 mg ONCE ONE Administration Medical Decision Making Medical Decision Making [facility] Narrative: Patient is a 29-year-old female who presents emergency department for evaluation of intermittent dizziness and lightheadedness, exacerbated with position change and head movement, occasional nausea and tinnitus. She was evaluated for similar symptoms 3 days ago, had reassuring ECG and lab work, advised hydration and outpatient follow-up with PCP. Despite drinking 130 oz of water daily since then her symptoms persist without any acute change (no improvement but also no worsening). Overall she is well-appearing, nontoxic, afebrile, appears hydrated at this time. Neuro exam with no abnormal findings, no focal neuro deficits, no spontaneous or gaze evoked nystagmus, no ataxia, no diplopia, no dysarthria,no dysphagia, no dysphonia, no dysmetria. Serum labs revealing a mild leukocytosis of 11,900, no anemia, no thrombocytopenia. No electrolyte derangement. No DON. LFTs unremarkable. HCG is negative. Viral serologies are negative. ECG revealing sinus rhythm with ventricular rate of 75, QTC of 395, no ST-elevation, no ST-depression. Orthostatic vital signs are negative. Urinalysis without infection, dehydrated no concentration. Given the sudden onset of dizziness, severe intensity, episodic nature, associated tinnitus persistent despite adequate reported hydration, there may be a component BPPV as it is triggered with certain head movements eliciting dizziness. Will trial meclizine in the emergency department. Differential Diagnosis Differential Diagnoses: The differential diagnosis associated with the presentation includes (See narrative above) Admission/Observation Consideration of admission/observation: Escalation of care including admission/observation considered Lab Data [facility] Lab Attestation statement: I reviewed the patient's lab results. (See narrative above) 10/02/24 15:46 10/02/24 15:46 Labs: Lab Results 10/02/24 10/02/24 10/02/24 Range/Units 15:46 15:47 18:22 WBC 11.9 H (4.8-10.8) X10*3/uL RBC 4.43 (4.20-5.50) X10*6/uL Hgb 14.2 (12.0-16.0) g/dl Hct 40.4 (37.0-47.0) % MCV 91.2 (80.0-98.0) fL MCH 32.1 (27.0-33.0) pg MCHC 35.1 H (31.0-35.0) g/dl RDW 12.2 (11.0-16.0) % Plt Count 309 (160-400) X10*3/uL MPV 9.6 (9.4-12.3) fL Immature Gran % (Auto) 0.3 (0.0-0.4) % Neut % (Auto) 86.2 H (45-73) % Lymph % (Auto) 8.1 L (20-40) % Parker % (Auto) 4.7 (2-11) % Eos % (Auto) 0.2 (0-4) % Baso % (Auto) 0.5 (0-2) % Lymph # (Auto) 1.0 L (1.2-4.9) X10*3/uL Parker # (Auto) 0.6 (0.1-1.2) X10*3/uL Eos # (Auto) 0.0 (0.0-0.4) X10*3/uL Baso # (Auto) 0.1 (0.0-0.2) X10*3/uL Abs Immat Gran (auto) 0.03 (0.00-0.03) X10*3/uL Absolute Neuts (auto) 10.2 H (2.0-8.3) x10*3/uL Absolute Nucleated RBC 0.000 (0.0-0.012) X10*3/uL Nucleated RBC % (auto) 0.0 (0.0-0.2) /100WBC Sodium 139 (135-145) mmol/L Potassium 3.6 (3.3-5.1) mmol/L Chloride 106 (96-108) mmol/L Carbon Dioxide 23 (22-29) mmol/L Anion Gap 14 (12-20) BUN 12 (9-16) mg/dL Creatinine 0.78 (0.5-1.4) mg/dL Estim Creat Clear Calc 78.6 Estimated GFR > 60 Random Glucose 107 (60-115) mg/dL Calcium 9.8 (8.4-10.2) mg/dL Total Bilirubin 0.7 (0.0-1.0) mg/dL AST 23 (5-31) U/L ALT 19 (0-31) U/L Alkaline Phosphatase 50 (39-117) U/L Total Protein 7.8 (6.5-8.0) g/dL Albumin 4.9 (3.5-5.0) g/dL Beta HCG, Quant < 2 mIU/mL Urine Color Yellow Urine Appearance Clear Urine pH 6.5 (5.0-9.0) Ur Specific [place] <= 1.005 (1.005-1.025) Urine Protein Negative (Neg-Trace) mg/dL Urine Glucose (UA) Negative (Negative) mg/dL Urine Ketones Negative (Negative) mg/dL Urine Blood Large (3+) H (Negative) Urine Nitrite Negative (Negative) Ur Leukocyte Esterase Trace H (Negative) Urine RBC 11-20 H (0-2) /HPF Urine WBC 6-10 H (0-5) /HPF Ur Squamous Epith Cells 0-2 (0-2) /HPF Urine Bacteria None Seen (None Seen) Hyaline Casts 0-2 (0-2) /LPF Influenza Type A (PCR) NEGATIVE (Negative) Influenza Type B (PCR) NEGATIVE (Negative) RSV RNA Qual (PCR) NEGATIVE (Negative) SARS-CoV-2 RNA (RT-PCR) NEGATIVE (Negative) S. pyogenes GrpA ANDREA Negative (Negative) Independent Interpretation I performed an independent interpretation of an: EKG (See narrative above) Radiology Impression Discussion of test interpretation with radiology: I have reviewed the radiologist's reading. Radiologist Impression: CT head without contrast Comparison: None Findings: No intra-axial mass, midline shift, hydrocephalus, or acute hemorrhage. No significant atrophy-like change or white matter disease. There is no sinus or mastoid fluid. The orbits are unremarkable. There is no acute fracture. IMPRESSION: 1. No acute intracranial findings. External Record Review External record reviewed: Prior outpatient labs Discharge Plan Discharge Clinical Impression: Dizziness Patient Disposition: Home, Self-Care Instructions: Dizziness (ED) Additional Instructions: As discussed, please contact your primary care doctor's office to arrange for a follow-up visit. They may consider a course of vestibular therapy to help with your vertigo like dizziness. Blood work today again was very reassuring, you are well hydrated, CT scan of your head did not show any abnormal findings. You may return to emergency department with new or worsening symptoms or concerns. Prescriptions: No Action dicyclomine 10 mg capsule 10 mg PO TID Qty: 90 0RF sucralfate [Carafate] 100 mg/mL suspension 1 g PO QIDACHS 28 Days Qty: 420 1RF bisacodyl [Dulcolax (bisacodyl)] 5 mg tablet,delayed release (DR/EC) 20 mg PO ONCE 1 Days Qty: 4 0RF Rx Instructions: Take 4 tablets by mouth at 12:00pm the day before your procedure. polyethylene glycol 3350 [Miralax] 17 gram/dose powder 238 g PO ONCE PRN (Reason: laxative effect) 1 Days Qty: 238 0RF Rx Instructions: Take as directed by mouth the day before your procedure. pantoprazole 20 mg tablet,delayed release (DR/EC) 20 mg PO QAM Qty: 30 6RF Referrals: Physician,None [Primary Care Provider] - Print Language: Korean
[2024-10-02 15:30] VITALS: BP 128/91; PULSE 80; RESP 16; TEMP 36.6; O2SAT 99; BMI 18.0
--- NOTE | 2024-10-02 15:31 | ECG_ITS ---
Test Reason : dizzy Blood Pressure : */* mmHG Vent. Rate : 75 BPM Atrial Rate : 75 BPM P-R Int : 132 ms QRS Dur : 84 ms QT Int : 354 ms P-R-T Axes : 74 49 66 degrees QTcB Int : 395 ms Sinus rhythm with marked sinus arrhythmia Cannot rule out Anterior infarct , age undetermined Abnormal ECG When compared with ECG of 29-Sep-2024 19:18, No significant change was found Referred By: Sabrina Oro Electronically Signed By: ALEC SHAH
[2024-10-02 15:53] LABS: MANUAL DIFF FLAG NO
[2024-10-02 15:56] LABS: Basophils Absolute Auto 0.1 X10*3/uL (0.0-0.2); Basophils Percent Auto 0.5 % (0-2); Eosinophils Percent Auto 0.2 % (0-4); Hematocrit 40.4 % (37.0-47.0); Hemoglobin 14.2 g/dl (12.0-16.0); Imm Gran Abs Auto 0.03 X10*3/uL (0.00-0.03); Imm Gran Pct Auto 0.3 % (0.0-0.4); Lymphocytes Percent Auto 8.1 % (20-40); Mean Corpuscular HGB Conc 35.1 g/dl (31.0-35.0); Mean Corpuscular Hemoglobin 32.1 pg (27.0-33.0); Mean Corpuscular Volume 91.2 fL (80.0-98.0); Mean Platelet Volume 9.6 fL (9.4-12.3); Monocytes Absolute Auto 0.6 X10*3/uL (0.1-1.2); Monocytes Percent Auto 4.7 % (2-11); Neutrophils Absolute Auto 10.2 x10*3/uL (2.0-8.3); Neutrophils Percent Auto 86.2 % (45-73); Platelet Count 309 X10*3/uL (160-400); Red Blood Count 4.43 X10*6/uL (4.20-5.50); Red Cell Distribution Width 12.2 % (11.0-16.0); White Blood Count 11.9 X10*3/uL (4.8-10.8)
[2024-10-02 16:06] LABS: IDNOW Serial# 55D5AD1C; Strep A Nucleic Acid Negative (Negative)
[2024-10-02 16:34] LABS: Influenza A PCR NEGATIVE (Negative); Influenza B PCR NEGATIVE (Negative); Resp Syncy Virus RNA Qual PCR NEGATIVE (Negative); SARS COV2 PCR INHOUSE NEGATIVE (Negative)
[2024-10-02 16:35] LABS: Alanine Aminotransferase 19 U/L (0-31); Albumin Level 4.9 g/dL (3.5-5.0); Anion Gap 14 (12-20); Aspartate Amino Transferase 23 U/L (5-31); Bilirubin Total 0.7 mg/dL (0.0-1.0); Blood Urea Nitrogen 12 mg/dL (9-16); Calcium 9.8 mg/dL (8.4-10.2); Carbon Dioxide 23 mmol/L (22-29); Chloride 106 mmol/L (96-108); Creatinine Clr Calc Pharmacy 78.6; Estimated Glomerular Filt Rate > 60; Glucose Random 107 mg/dL (60-115); HCG Quantitative < 2 mIU/mL; Potassium 3.6 mmol/L (3.3-5.1); Sodium 139 mmol/L (135-145); Total Protein 7.8 g/dL (6.5-8.0)
[2024-10-02 16:50] LABS: Alkaline Phosphatase 50 U/L (39-117)
[2024-10-02 17:52] VITALS: BP 119/72; PULSE 57; RESP 16; TEMP 36.4; O2SAT 99
[2024-10-02 18:25] VITALS: BP 118/67; BP 123/74; BP 131/85; PULSE 55; PULSE 66; PULSE 82
[2024-10-02 18:32] LABS: Appearance Urine Clear; Color Urine Yellow; Glucose Urine UA Negative (Negative); Leukocyte Esterase Urine Trace (Negative); Nitrite Urine Negative (Negative); PH 6.5 (5.0-9.0); Specific Gravity - Urine <= 1.005 (1.005-1.025); UMIC TRIGGER UACC YES; Urine Blood Large (3+) (Negative); Urine Ketones Negative (Negative); Urine Protein Negative (Neg-Trace)
--- OUTSIDE RECORDS SUMMARY | 2024-10-02 18:35 | XMS_ITS | Clinical Summary ---
Author Organization [facility] [address] [facility] Address [address] [place] [address] Phone Care Team Providers Care Precision Thread Grinder Operator Name Role Phone Meagan Flynn MD Primary Care Provider [phone] Encounters Date Type Department Care Team Description 10/02/2024 Telephone Adult [facility] [address] [place] [address] Meagan Flynn MD Hospital Followup from Last 3 Months Surgical History Surgery Date Site/Laterality Comments OTHER SURGICAL HISTORY PROCEDURE: DENIES PREVIOUS SURGERY HAND SURGERY 01/01/2021 Left PROCEDURE: SD UNLISTED PROCEDURE HANDS/FINGERS; COMMENT: left thumb excisional bx Family History Medical History Relation Name Comments Bladder Cancer Aunt Diabetes Father Other: cancer kidney Father Diabetes Mother Breast cancer Paternal Grandmother Blindness Neg Hx Cataracts Neg Hx Glaucoma Neg Hx Macular degeneration Neg Hx Relation Name Status Comments Aunt Father Alive Mother Alive Paternal Grandmother Social History Tobacco Use Types Packs/Day Years Used Date Smoking Tobacco: Former Cigarettes Q uit: 06/14/2019 Smokeless Tobacco: Current Alcohol Use Standard Drinks/Week Comments Yes 0 (1 standard drink = 0.6 oz pur e alcohol) Comments Unknown Sex and Gender Information Value Date Recorded Sex Assigned at Not on file Legal Sex Female 11:06 AM EST Gender Identity Not on file Sexual Orientation Not on file Obstetrics History Last Filed Vital Signs Vital Sign Reading Time Taken Comments Blood Pressure 110/80 2023 9:41 AM EST Sitting L Arm Pulse 99 2023 9:41 AM EST Temperature - - Respiratory Rate - - Oxygen Saturation - - Inhaled Oxygen Concentration - - Weight 47.7 kg (105 lb 3.2 oz) 2023 9:41 AM EST Height 160 cm (5' 3 ) 2023 9:41 AM EST Body Mass Index 18.64 2023 9:41 AM EST Plan of Treatment Health Maintenance Due Date Last Done Comments Depression Screening 05/12/2022 HIV Screening 05/12/2022 Hepatitis C Screening 05/12/2022 Social Influencers of Health Screening 05/12/2022 Cervical Cancer Screening: Pap Smear 12/28/2022 12/29/2019 COVID-19 Vaccine ( season) 2024 Influenza Vaccine (Season Ended) 2025 DTaP,Tdap,and Td Vaccines (8 - Td or Tdap) 01/10/2030 01/11/2020, 07/22/2009, 11/09/2002, Additional history exists Hepatitis B Vaccines Completed 05/23/1998, 1997, 1997 HIB Vaccines Completed 11/28/1998, 08/1997, 1997, Additional history exists MMR Vaccines Completed 07/29/2001, 08/22/1998 IPV Vaccines Completed 11/09/2002, 11/12, 02/14/1998, Additional history exists Varicella Vaccines Completed 07/22/2009, 08/22/1998 HPV Vaccines Completed 02/06/2014, 08/12, 07/26/2013 Hepatitis A Vaccines Completed 08/26/2016, 02/07/20 14 Meningococcal ACWY Vaccine Aged Out 08/26/2016, No longer eligible based on patient's age to complete this topic Meningococcal B Vaccine Aged Out No l onger eligible based on patient's age to complete this topic Pneumococcal Vaccine: Pediatrics (0 to 5 Years) and At-Risk Patients (6 to 64 Years) Aged Out No longer eligible based on patient's age to complete this topic RSV Immunization Patients Under 20 months Aged Out No longer eligible based on patient's age to complete this topic Procedures Procedure Name Priority Date/Time Associated Diagnosis Comments PAP SMEAR Routine 12/29/2019 from Last 3 Months or Most Recently Relevant to Health Maintenance Results * Pap smear (12/29/2019) 12/29/2019 Narrative HISTORICAL TESTING LAB RESULTING AGENCY - 01/02/2020 10:56 AM EDT [id number] THINPREP PAP, IMAGED: NEGATIVE FOR SQUAMOUS INTRAEPITHELIAL LESION AND MALIGNANCY . ALANNA HAWKINS(ASCP) (CASE ELECTRONICALLY SIGNED 01 02 2020) ADEQUACY: SATISFACTORY ENDOCERVICAL/TRANSFORMATION ZONE COMPONENT PRESENT. SOURCE: THINPREP PAP HPV IF ASCUS, CERVICAL, IMAGED CLINICAL INFORMATION: HPV IF DIAGNOSIS OF ASCUS. HORMONES, LMP 12/17/19, Z12.4 Michael Washburn CN LAB CYTOLOGY ORDERABLES Final Result HISTORICAL TESTING LAB RESULTING AGENCY from Last 3 Months or Most Recently Relevant to Health Maintenance Care Teams Precision Thread Grinder Operator Relationship Specialty Start Date End Date Meagan Flynn MD PCP - General 06/28/23
--- OUTSIDE RECORDS SUMMARY | 2024-10-02 18:35 | XMS_ITS | Encounter Summary ---
Author Organization [facility] Address [address] [place] [address] Care Team Providers Care Machine Stone Polisher Name Role Phone Meagan Flynn MD Primary Care Provider [phone] Reason for Visit * Reason Onset Date Comments Hospital Followup 10/02/2024 Encounter Details Date Type Department Care Team ([facility] st Contact Info) Description 10/02/2024 Telephone Adult [address] [address] Meagan Flynn MD [address] [place] [id number] Hospital Followup Social History Tobacco Use Types Packs/Day Years [...] on file Sexual Orientation Not on file documented as of this encounter Progress Notes * Ashley Pino RN - 10/02/2024 12:21 PM EDT Was patient notified that Dr Roberts has left and they will have to find a new PCP? * Henry Grady - 10/02/2024 12:16 PM EDT Hospital/ER follow up appointment needed Hospital patient was treated at: [facility] Was this only an ER visit or was the patient admitted to the hospital? Admitted to the hospital/kept overnight Date of visit if ER visit only: If patient was admitted what was the date of discharge? 09/29/24 Reason/diagnosis for visit or stay: Dizziness When was the patient told to follow up? Was visit or stay related to an injury? If yes, what was the date of injury (DOI)? No If yes, was the injury due to: documented in this encounter Plan of Treatment Not on file documented as of this encounter Visit Diagnoses Not on filedocumented in this encounter Care Teams Machine Stone Polisher Relationship Specialty Start Date End Date Meagan Flynn MD PCP - General 06/28/23 documented as of this encounter
[2024-10-02] MEDS: Meclizine HCl 25 MG TABLET PO (18:51)
[2024-10-02 19:48] VITALS: BP 127/80; PULSE 64; RESP 16; TEMP 36.9; O2SAT 99
[2024-10-02 20:34] LABS: Bacteria Urine None Seen (None Seen); Hyaline Casts Urine 0-2 /LPF (0-2); Squamous Epithelial Cell Urine 0-2 /HPF (0-2); UACC Culture Trigger YES
[2024-10-02] MEDS: LORazepam 0.5 MG TABLET PO (21:50)
[2024-10-02] MEDS: Ondansetron ODT 4 MG TAB.RAPDIS TRANSLINGU (21:50)
[2024-10-02 21:55] VITALS: BP 120/79; PULSE 66; RESP 16; TEMP 36.8; O2SAT 98
[2024-10-03] VITALS: BP 111/65; PULSE 61; RESP 20; TEMP 36.6; O2SAT 99
== END 2024-10-03 00:04 | disposition home or self-care (01) ==
PROVIDERS: Registered Nurse Emergency; Emergency Provider Emergency Medicine Emergency Medical Services
DX: I49.9 Cardiac arrhythmia, unspecified (principal); R42 Dizziness and giddiness; R94.31 Abnormal electrocardiogram [ECG] [EKG]; R11.0 Nausea; H93.13 Tinnitus, bilateral; R10.2 Pelvic and perineal pain; Z79.899 Other long term (current) drug therapy; Z03.818 Encounter for observation for suspected exposure to other biological agents ruled out
CPT/HCPCS: 0241U; 70450; 80053; 81001; 84702; 85025; 87086; 87651; 93005; 99284

== ENCOUNTER → 2024-10-02 15:31 | Outpatient (BNV) | payer OTHER, SELFPAY | PROVIDERS: Emergency Provider Emergency Medicine Emergency Medical Services; Visit Provider Internal Medicine | DX: R94.31 Abnormal electrocardiogram [ECG] [EKG] (principal); R42 Dizziness and giddiness | CPT/HCPCS: 93010 ==

== ENCOUNTER → 2024-10-02 21:37 | Outpatient (BNV) | payer OTHER, SELFPAY | PROVIDERS: Emergency Provider Emergency Medicine Emergency Medical Services; Visit Provider Radiology Diagnostic Radiology | DX: R42 Dizziness and giddiness (principal) | CPT/HCPCS: 70450 ==

== ENCOUNTER 2024-12-24 14:50 | Outpatient (REF) | payer OTHER, SELFPAY ==
--- NOTE | ~2024-12-24 | MR_ITS ---
EXAMINATION: MR BRAIN WITHOUT CONTRAST CLINICAL INFORMATION: Demyelinating disease of central nervous system, unspecified. COMPARISON: None available. TECHNIQUE: MRI of the brain was obtained using routine sequences without contrast. FINDINGS: No restricted diffusion. No acute intracranial hemorrhage, mass effect, midline shift, hydrocephalus or herniation. Obrien-white matter differentiation is normal. Posterior cranial fossa contents demonstrated no signal abnormality or mass effect. Craniocervical junction demonstrates normal position of the cerebellar tonsils. Sellar/suprasellar region is normal. Flow-void signal within the main cerebral vessels is normal. MR/MR head/brain wo con IMPRESSION: No acute or structural brain abnormality. No obvious/discrete demyelinating plaques. Electronically signed by: Zen Woodson MD 12/25/2024 09:14 AM EDT
== END 2024-12-24 14:51 | disposition home or self-care (01) ==
LOC: HO.MRI 14:50
PROVIDERS: PCP Internal Medicine; Visit Provider Registered Nurse
DX: G37.9 Demyelinating disease of central nervous system, unspecified (principal)
CPT/HCPCS: 70551

== ENCOUNTER → 2024-12-24 15:04 | Outpatient (BNV) | payer OTHER, SELFPAY | PROVIDERS: PCP Internal Medicine; Visit Provider Radiology Diagnostic Radiology | DX: G37.9 Demyelinating disease of central nervous system, unspecified (principal) | CPT/HCPCS: 70551 ==